=== PATIENT | female | born 1965 | race Caucasian/White ===

== ENCOUNTER 2024-08-07 15:49 | Inpatient (IN) | payer OTHER, SELFPAY ==
[2024-08-07] VITALS (71 sets, daily range): BP systolic 108–227; BP diastolic 62–159; BMI 30.1; BMI 30.4; BMI 30.3
--- NOTE | 2024-08-07 14:21 | ED.CVA ---
History of Present Illness
General
Chief Complaint: CVA/TIA Symptoms
Time Seen by Provider: 08/07/24 14:19
Onset of Stroke Symptoms
Onset of symptoms known: Yes
Date of onset of symptoms: 08/07/24
Time of onset of symptoms: 13:30
Time pt last seen normal is known: Yes
Date last time pt seen normal: 08/07/24
Time last time pt seen normal: 13:30
History of Present Illness
History of Present Illness:
TIME OF INITIAL ENCOUNTER: 2:15 PM
HPI: At around 1:45 PM today, the patient's noted that she not acting like her normal self. She cannot remember anything recently. Upon arrival here she cannot remember how she got here. She could not remember what she was wearing today
or how she got dressed. She has high blood pressure and a history of fatty liver but is otherwise fairly healthy. She does report paresthesias to the upper extremities bilaterally.
EXAM:
GENERAL: Appears anxious
HEENT: Moist oral mucosa
CARDIOVASCULAR: No murmurs, normal heart rate, regular rhythm, No chest wall tenderness
PULMONARY: No respiratory distress, breath sounds are clear and equal
ABDOMEN: Soft with no peritoneal signs, no tenderness
NEUROLOGIC: Excellent strength all extremities, no coordination deficits, does not know the month, knows she is at [facility], cannot state her age
PSYCHIATRIC: The patient currently has limited insight and judgment, poor memory, she appears very anxious
EXTREMITIES: Nontender, no edema, moves all extremities equally
SKIN: Lesions noted to the right upper anterior chest wall consistent with recent dermatologic procedure
NUMBER AND COMPLEXITY OF PROBLEMS ADDRESSED AT THE ENCOUNTER
� Chronic conditions affecting care: High blood pressure
� Acute Exacerbation and/or Progression of Chronic Illness: This is an acute problem
� Differential Diagnosis includes:transient global amnesia, electrolyte normality, CVA, hypertensive urgency/emergency
AMOUNT AND/OR COMPLEXITY OF DATA TO BE REVIEWED AND ANALYZED
� I performed an independent evaluation of and my interpretation is:
EKG: Sinus 94, QTc 497 ms, nonspecific ST abnormality
CT: CT head, CTP, CTA head and neck all negative for acute abnormality
X-rays:
Laboratory Studies: CBC unremarkable
Other:
� Review of other/old records: The patient had colonoscopy in 2021
� Clinical information was obtained by an independent historian: I spoke to at bedside
� Prescriptions/Medications Considered but not given:
� Further testing considered but not performed:
RISK OF COMPLICATIONS AND/OR MORBIDITY OR MORTALITY OF PATIENT MANAGEMENT
� Social determinants of health affecting care: Lives at home
� Discussion with other providers: I spoke to Dr. Buchanan at bedside; Hospitalist for admission
� Escalation of care including admission/observation vs risk of discharge considered: See below
ANY OTHER UPDATES:
The patient was seen immediately upon arrival. CT head, CTP, CTA head neck negative. Hopefully this ends up being transient global amnesia however the patient was seen by neurology who is more concerned about the possible of CVA. Dr. Nicole does
recommend TNK. Her blood pressure initially was as high as 227 systolic. After labetalol 10 mg IV was given she was down to 187 systolic. I have ordered Cardene to try to get her below 180 before TNK. On reassessment at 3:20 PM, her mental
status/memory remains impaired and unchanged compared to arrival.
3:30 PM: Systolics now around 160. Will plan TNK at recommendation of the neurologist.
Past History
Past History
ED Past Medical History: Other (Nephrolithiasis)
ED Past Surgical History: Gynecological
Social History
Tobacco: Non-smoker
Alcohol: None
Phy Exam
Physical Exam
Physical Exam:
See HPI
Course
Orders/Labs/Results
Orders:
Orders
08/07/24 14:19
CT HEAD STROKE ALERT W/o Cont Urgent
Reason For Exam: acute memory loss
08/07/24 14:24
Electrocardiogram (*1) Urgent
Reason for Study: TIA/Stroke
EKG- Treatment ONCE
08/07/24 14:28
CT BRAIN PERF STROKE ALERT Stat
Comment:
Reason For Exam: stroke
CT HEAD/NECK ANG STROKE ALERT Stat
Comment:
Reason For Exam: stroke, amnesia, disorientation, trace right sided
08/07/24 14:56
Alcohol Urgent
Complete Blood Count/With Diff Urgent
Comprehensive Metabolic Panel Urgent
08/07/24 15:03
Labetalol HCl [Trandate] 10 mg IV NOW STA
08/07/24 15:04
Tenecteplase [Tnkase] 20 mg Syringe [Syringe Non-Pump] 0 ml IV NOW
Provider explained risk/benefits to patient &/or caregiver?: Yes
Blood pressure: 227/159
08/07/24 15:15
Nicardipine 40 mg/200 ml [Cardene] 40 mg in 200 ml IV PER PROTOCOL
Initial dose in mg/hr, then titrate:: 2.5
Titrate to keep:: BP < 180/105 mmHg
Titrate by mg/hr:: 2.5 mg/hr
Frequency of titrations (minutes):: 5-15 minutes
Maximum dose in mg/hr:: 15
Begin to taper infusion when:: Remained at goal for 2hrs
Taper by mg/hr:: 2.5 mg/hr
Frequency of taper (minutes) if patient maintains goal:: every 15-30 minutes
Taper to off?: Yes
If infusion off & no longer maintaining goal:: Contact Provider
08/07/24 15:19
Nicardipine 40 mg/200 ml [Cardene] 40 mg in 200 ml .ROUTE .STK-MED
08/07/24 15:33
Admit/Transfer Patient As Directed
Co-Sign Provider:
Level of Care: Inpatient admission
Assign to:: ICU
Physician / Group: Lakeshia
Diagnosis: Amnesia
Reason for Hospitalization: TNK
Expected length of stay greater than two midnights?: Yes
ELOS- Estimated Length of Stay in days: 3
I certify the patient meets the requirements for IP care: Yes
08/07/24 15:34
Code Status As Directed
Resuscitation Status: Full Code
PRN Pain Medication Management As Directed
May give lesser potent ordered pain med per pt: Yes
preference::
Protocol:: Medication orders for pain may be administered in a
manner that supports deferring to patient preference
when the pt is:
- Requesting an ordered lesser potent pain medication.
Least to most potent pain medications are defined
as: acetaminophen < NSAID < tramadol < opioids
(morphine, oxycodone, hydromorphone).
- Requesting a lesser dose of the same medication IF
ORDERED.
- Requesting a less intrusive route of administration
if both routes are prescribed by the provider (PO <
IV).
08/07/24 16:26
Acetaminophen [Tylenol] 650 mg PO Q4HPRN PRN
08/07/24 16:26
Case Management Consult Once
Case Management Consult: Discharge Planning
DIETARY IP CONSULT Routine
Reason for Consult: stroke/TIA
Securities Adviser Consult Routine
Consulting Provider: Tammy Preciado
Was physician already notified: Yes
NEUROLOGY CONSULT Urgent
Consulting Provider: Francisco Buchanan
Was physician already notified: Yes
Ground Instructor Basic Urgent
Activity As Directed
Activity Level: Bathroom Privileges
Out of Bed- Chair
With Assistance
Comment: x 24hr post tenecteplase admin (and no PT/OT). then OOB as tolerated
Head of Bed-Restrictions As Directed
Elevation Level: 30 degress
Frequency: At all times
Comment: head of bed up 30 degrees for 24 hours
Hemetest Stools As Directed
Comment: hemoccult all stools if patient received tenecteplase
NIH Stroke Scale As Directed
Directions: Other
Comment: NIH stroke Scale to be completed prior to thrombolytic administration, then every 1 hour for 2
hours, then every shift and with change in condition and/or mental status.
Neurological Checks As Directed
Frequency: Per unit guidelines
Additional Instructions:: after start of thrombolytic therapy:
q15min x 2 hrs, q30min x 6 hrs, q1h x 16 hrs, q4h x 24 hrs, then every shift and
with any changes.
Notify MD As Directed
Notify physician if: - Any deterioration, change in neurological status, development of severe headache,
nausea and vomiting, or with any signs of bleeding. (see guidelines for suspected
intracerebral hemorrhage).
- If intracranial hemorrhage is suspected or confirmed by imaging, anticipate need for
osmotic diuretic to maintain euvolemia.
Notify MD As Directed
Notify physician if: Glucose less than 70 or greater than 180.
Anticipate corrective insulin orders.
Notify MD As Directed
Notify physician if: unable to obtain MRI of head within 22-32 hours of tenecteplase administration
- contact Neurology for order for CT of head without contrast
Patient Education As Directed
Type: Stroke education packet
Comment: provide to patient and family
Pneumatic Compression Sleeves As Directed
Type: Knee high
Precautions As Directed
Type of Precautions: Bleeding
Comment: post Bleeding Precaution sign at bedside (if patient received tenecteplase)
Swallow Screening CVA/TIA ONLY As Directed
Comment: NPO until swallow screening completed
If patient FAILS swallow screening:: NPO and Speech consult and aspiration precautions
If patient PASSES swallow screening, diet:: Sodium, 2 Gram
Above diet order entered?: Yes- passed screening
Thrombolytic Precautions As Directed
Thrombolytic Precautions:: [place] bleeding precautions. Minimize invasive procedures and venipunctures,
avoid IM injections and over-handling patient, and check all puncture sites for
bleeding. Assess the patient and notify provider for signs and symptoms of
internal or serious bleeding, such as changes in vital signs or evidence of blood
in the urine or stool.
Additional instructions: Hemocult all stools.
Apply direct pressure or pressure dressing to any compressible puncture sites.
No ABG sampling or Gomes insertion after Tenecteplase administration for 24 hours,
unless directed by the Neurologist/Attending.
Vital Signs As Directed
Frequency: q15m
Call for:: BP greater than 180/105 mmHg or less than 100/60 mmHg
Additional Instructions:: after start of thrombolytic therapy:
q15min x 2 hrs, q30min x 6 hrs, q1h x 16 hrs, q4h x 24 hrs, then every shift and
with any changes.
Speech Therapy Eval & Treat Routine
DX Deep Vein Thrombosis Video Routine
08/08/24 04:07
Cardiovascular Evaluation IN AM
Complete Blood Count/No Diff IN AM
Glycohemoglobin (HgbA1c) IN AM
Magnesium IN AM
PTT IN AM
Prothrombin Time IN AM
08/08/24 15:34
Ot Eval And Treat Routine
Pt Eval And Treat Routine
Activity Level: Out of Bed-Early Mobility
Abnormal Lab Results
08/07/24 08/07/24
14:56 15:17
MCH 31.9 H pg
(27.0-31.0)
MPV 11.0 H fL
(7.4-10.4)
Immature Gran % 0.6 H %
(0-0.5)
Chloride 108 H mmol/L
(98-107)
Carbon Dioxide 21 L mmol/L
(22-30)
Glucose 113 H mg/dl
(70-99)
AST 55 H U/L
(14-36)
ALT 76 H U/L
(0-35)
Total Protein 8.3 H g/dl
(6.3-8.2)
Albumin 5.2 H g/dl
(3.5-5.0)
POC Glucose 121 H mg/dl
(70-99)
08/07/24 14:56
08/07/24 14:56
Vital Signs
Initial and Last Documented VS:
Initial Vital Signs
Temp Pulse Resp BP Pulse Ox
36.5 C 125 20 227/159 100
08/07/24 14:09 08/07/24 14:09 08/07/24 14:09 08/07/24 14:09 08/07/24 14:09
Last Documented Vital Signs
Temp Pulse Resp BP Pulse Ox
37.0 C 69 11 116/72 93
08/08/24 03:38 08/08/24 07:00 08/08/24 07:00 08/08/24 07:00 08/08/24 06:45
*Critical Care Note
Total Time (30-74mins, 75-104mins- exclusive of procedures): 45min
comment:
Patient was called as a stroke alert from triage. She was seen by Dr. Buchanan in the ED and is recommending TNK. Close neurologic monitoring. Remains amnestic to recent events.
ED Attending Note
-
Portions of this chart may have been created with voice recognition software.� Occasional wrong word or��sound alike� substitutions may have occurred due to the inherent limitations of voice recognition software.
Discharge Plan
Departure
Patient Disposition: Admit
Date of Disposition: 08/07/24
Time of Disposition: 15:07
Presentation/result/management discussed w/ accepting MD/DO: Hospitalist
Discharge Problem:
Global amnesia
Interventions
Interventions:
*Risk Screen - Suicide Last Done: 08/07/24 14:09
*General Assessment Last Done: 08/07/24 15:50
*Neglect/Abuse Screening Last Done: 08/07/24 14:09
*ED- Fall Risk Assessment Last Done: 08/07/24 15:50
*ED COVID-19 Vaccine History Last Done: 08/07/24 15:50
*Nursing Disposition Last Done: 08/07/24 17:00
ED- Pulmonary Assessment Last Done: 08/07/24 15:25
ED- Neurological Assessment Last Done: 08/07/24 15:33
ED- Cardiac Assessment Last Done: 08/07/24 15:25
ED Swallowing Screen Last Done: 08/07/24 15:41
Discharge Date and Time
Discharge Date/Time: 08/07/24 17:01
--- NOTE | 2024-08-07 14:39 | CON.NEURO ---
Neuro Assessment/Plan
Assessment
Head CT imgs rev'd, normal
CTA head/neck imgs and rept rev'd, no carotid disease, no LVO
CT perfusion color maps reviewed, core 0, penumbra 0
59 year old woman with disorientation, anterograde/retrograde memory loss, and ?right leg weakness. bp 214/119
an unusual presentation for stroke or TGA given the amout of disorientation and retrograde amnesia, though some amount is allowed.
while more likely that this is TGA or functional, I would err on the side of treating a with TNK after bringing down blood pressure, than risk missing a stroke. if it is a stroke, 40% efficacy and ~5% risk of bleeding; if not a stroke and nothing to
bleed then there is no risk
would work up with brain MRI, EEG
Consultation
Order
Date of Consultation: 08/07/24
Requesting Provider: Elan Kitchen
Reason for Consult: stroke alert
Subjective/Objective
Subjective Data
Date of Service: August 07, 2024
From ED notes: At around 1:45 PM today, the patient's noted that she not acting like her normal self. She cannot remember anything recently. Upon arrival here she cannot remember how she got here. She has high blood pressure and a history
of fatty liver but is otherwise fairly healthy. She does report paresthesias to the upper extremities bilaterally
last saw her normal ~1pm after lunch
She cannot remember what she did over the weekend or the previous weekend for . cannot remember any events from this AM.
on initial eval slight RLE drift, resolved after CT scan
In CT asked if her was still here?
Objective Data
Vital Signs
Temp Pulse Resp BP Pulse Ox
36.5 C 125 20 227/159 100
08/07/24 14:09 08/07/24 14:09 08/07/24 14:09 08/07/24 14:08/07/24 14:09
Patient Allergies
Penicillins Allergy (Verified 08/07/24 14:09)
Rash
CVA Assessment
Onset of Stroke Symptoms
Onset of symptoms known: Yes
Date of onset of symptoms: 08/07/24
Time of onset of symptoms: 14:00
Date last time pt seen normal: 08/07/24
Time last time pt seen normal: 13:00
NIH Stroke Score
Level of Consciousness: 0 - Alert
LOC Questions: 2-Neither correct
LOC Commands: 0-Performs both correctly
Best Horizontal Gaze: 0-Normal
Visual Bowman: 0=Normal, no visual loss
Facial Palsy: 0=Normal, symmetrical
Motor - Right Arm: 0=No drift 10 seconds
Motor - Left Arm: 0=No drift 10 seconds
Motor - Right Le-Drift < 5 seconds
Motor - Left Le-No drift 5 seconds
Limb Ataxia: 0-Absent
Sensation: 0-Normal
Best Language: 0-No aphasia
Dysarthria: 0-Normal
Extinction and Inattention: 0-No abnormality
NIH Total Score:: 3
Physical Exam
-
Awake and alert, oriented x0, no aphasia, follows commands and identifies all pictures
VFF, EOMI, face symmetric
full strength b/l UE/LE on MMT
sensation intact to touch/temp/vibration, no sensory neglect
[2024-08-07 15:03] LABS: % Basophils 0.8 % (0-2); % Eosinophils 2.1 % (0-6); % Immature Granulocytes 0.6 % (0-0.5); % Lymphocytes 40.4 % (20.5-51.1); % Monocytes 8.6 % (1.7-9.3); % Neutrophils 47.5 % (42.2-75.2); Absolute Basophils 0.1 10^3/uL (0-0.2); Absolute Eosinophils 0.2 10^3/uL (0-0.7); Absolute Lymphocytes 2.9 10^3/uL (1.2-3.4); Absolute Monocytes 0.6 10^3/uL (0.1-0.6); Absolute Neutrophils 3.4 10^3/uL (1.4-6.5); Hematocrit 43.8 % (37.0-47.0); Hemoglobin 15.8 g/dL (12.0-16.0); Mean Corp Hgb Conc. 36.1 g/dL (33.0-37.0); Mean Corpuscular Hgb 31.9 pg (27.0-31.0); Mean Corpuscular Volume 88.3 fL (81.0-99.0); Nucleated Red Blood Cells % 0 %; Platelet Count 216 10^3/uL (130-400); Red Blood Cell Count 4.96 10^6/uL (4.20-5.40); Red Cell Dist. Width 12.9 % (11.5-14.5); White Blood Cell Count 7.2 10^3/uL (4.8-10.8)
[2024-08-07] MEDS: TRANDATE 10 MG IV (15:07)
[2024-08-07 15:18] LABS: Glucose - Point of Care 121 mg/dl (70-99)
[2024-08-07] MEDS: CARDENE 200 IV ×2 (15:23→23:00)
[2024-08-07 15:24] LABS: ALT (SGPT) 76 U/L (0-35); AST (SGOT) 55 U/L (14-36); Albumin 5.2 g/dl (3.5-5.0); Alcohol None Detected; Alkaline Phosphatase 121 U/L (38-126); Blood Urea Nitrogen 15 mg/dl (7-17); Calcium 9.7 mg/dl (8.4-10.2); Carbon Dioxide 21 mmol/L (22-30); Chloride 108 mmol/L (98-107); Estimated Creatinine Clearance 103 ml/min; Glucose 113 mg/dl (70-99); Potassium 3.8 mmol/L (3.5-5.1); Sodium 139 mmol/L (135-145); Total Bilirubin 0.8 mg/dl (0.2-1.3); Total Protein 8.3 g/dl (6.3-8.2); eGFR > 60.00
[2024-08-07] MEDS: TNKASE 4 MG IV (15:34)
--- NOTE | 2024-08-07 15:40 | HPS.HSE ---
Family Physician
-
Family Physician: NOT KNOW UNKNOWN - PT DOES
Chief Complaint
-
Memory Problem
History of Present Illness
Patient is a 59 y/o female past medical history of hypertension who presents with memory impairment. Additional history is obtained from patient's at the bedside. Patient was in her usual state of health this morning, and seemed to be fine
when the asked her about eating lunch around 1PM. Around 1:45PM the patient called to her that she did feel like her self. noted that she was repeating things. Upon my evaluation patient does not remember how she got to
the emergency department. With further conversation she does not remember things from last week including having some mole removed or going to the [employer] the [employer] movie. She continued to ask repetitive questions during my evaluation.
Medical History
Past Medical History
Past Medical History: Reports Other
Additional Past Medical History:
Essential Hypertension
Past Surgical History: Reports Other
Additional Past Surgical History:
Partial Hysterectomy
Social History
Tobacco: Non-smoker
Alcohol: Occasional
Family History
Family History: Not pertinent
Allergies / Home Medications
Allergies reflects when Allergies were last updated in [facility].
Home Medications with original date entered in [employer]
Allergy/Medication List:
Allergies
Allergy/AdvReac Type Severity Reaction Status Date / Time
Penicillins Allergy Rash Verified 08/07/24 14:09
Home Medications
losartan 25 mg tablet 25 mg PO DAILY 08/07/24
Review of Systems
-
Unable to obtain full review of systems at this time due to: Acuity
History Source: Patient and Family
Respiratory: Denies Trouble Breathing
Cardiac: Denies Chest Pain
Neurological: Reports See HPI
Physical Exam
Vital Signs
Vital Signs
Temp Pulse Resp BP Pulse Ox
97.7 F 99 18 164/108 96
08/07/24 14:09 08/07/24 15:36 08/07/24 15:36 08/07/24 15:36 08/07/24 15:25
Physical Exam
General: No Apparent Distress and Conversant
HEENT: Anicteric and Moist mucous membranes
Respiratory: Clear and Non Labored Respirations
Cardiac: S1/S2 and Regular Rhythm
GI: Soft and Non Tender
Rectal: Deferred by Provider
Musculoskeletal: No Clubbing and No Cyanosis
Skin: Warm and Dry
Neuro: Awake, Alert, Oriented (Patient correctly identifies her at the bedside and states she is at [facility]; After some time she did give the correct year but was unable to tell me the correct month; Initially gave Obama at the
president but was eventually able to identify Zoey as the current president) and No Motor Deficits
Psych: Confused and Anxious
Laboratory Results
-
08/07/24 14:56
08/07/24 14:56
Laboratory Results
Total Bilirubin 0.8 mg/dl (0.2-1.3) 08/07/24 14:56
AST 55 U/L (14-36) H 08/07/24 14:56
ALT 76 U/L (0-35) H 08/07/24 14:56
Alkaline Phosphatase 121 U/L (38-126) 08/07/24 14:56
Data Reviewed
-
CT Scan: Report Reviewed by me
Lab Data: Labs Reviewed by me
Impression/Plan
-
Acute Global Amnesia, differential includes Acute Stroke, TGA and Hypertensive Encephalopathy
-Neurology evaluated patient in the emergency department and recommended TNK
-Admit to ICU post-TNK
-Monitor for bleeding
-Monitor NIH and Neuro-check
-Check Brain MRI tomorrow (24-hours post-TNK)
Hypertensive Emergency
-Patient started on Cardene drip in the emergency department for BP management
-Patient admits to non-compliance with her losartan at home
DVT proph: SCDs
Code Status: Full Code
--- NOTE | 2024-08-07 16:48 | CON.INTV ---
Consultation
Consultation Request
Date/Time Consultation Requested: 08/07/2024
Date/Time Consultation Performed: 08/07/2024
Requesting Provider: Diane Dutton
Performing Provider: Tammy Preciado
Reason for Consultation: Suspected CVA
Medical History
-
Chief Complaint: Memory loss
History of Present Illness:
Patient is a 59-year-old female with known history of hypertension and anxiety with prior history of panic attacks who presents to the hospital with memory impairment. History is primarily obtained from patient at bedside. Reportedly
patient was at her baseline health and then was reportedly at some point was repeating what she was saying and seemed to have memory loss. Patient does not have any recollection of these events including coming to the emergency room or receiving
any treatment. In the emergency room a stroke protocol was initiated, CT and CTA was negative. Patient was evaluated by neurology service and decision was made to proceed with TNK. Post TNK, she is being admitted to the ICU and safety and security manager
consult was requested for further input.
Past Medical History: Reports Other
Additional Past Medical History:
Essential Hypertension
?Fatty liver disease
Past Surgical History: Reports Other
Additional Past Surgical History:
Partial Hysterectomy
Social History
Tobacco: Non-smoker
Alcohol: Occasional
Family History
Family History: Not pertinent
Allergies / Home Medications
Allergies / Home Medications
Allergies
Allergy/AdvReac Type Severity Reaction Status Date / Time
Penicillins Allergy Rash Verified 08/07/24 14:09
Home Medications
�Medication �Instructions �Recorded �Confirmed �Last Taken �Type
losartan 25 mg tablet 25 mg PO DAILY 08/07/24 08/07/24 Unknown History
Review of Systems
-
Hematologic/Lymphatic: Other (All 14 systems reviewed and negative except as stated above in the history of present illness.)
Vitals / Labs / Diagnostic Testing
Vital Signs
Temp Pulse Resp BP Pulse Ox
97.7 F 104 16 140/100 96
08/07/24 14:09 08/07/24 16:36 08/07/24 16:36 08/07/24 16:36 08/07/24 15:25
Lab Data
08/07/24 14:56
08/07/24 14:56
Diagnostic Testing:
Physical Exam
-
HEENT: Normocephalic
Cardiovascular: S1/S2
Respiratory: Clear and Non-Labored Respirations
GI: Soft and Non Distended
Neurology: Awake, Alert, Oriented and Other (Nonfocal neuroexam, amnesia persists)
Skin: Warm and Dry
General: Comfortable
Assessment
-
#1. Amnesia,? Related to underlying CVA versus acute global amnesia versus hypertensive encephalopathy versus conversion reaction
-S/p TNK
-CT and CTA unremarkable
-Neurology service on case
-Follow-up brain MRI
-Neurochecks, monitor closely in the ICU
-Nonfocal neuroexam during my evaluation, amnesia persists
#2. Hypertensive emergency
-Severely elevated blood pressure noted along with amnesia
-Cardene drip currently at 5
#3. History of anxiety, panic attacks
-Previously had been on Prozac, lately has not been on any medication
- Conversion disorder also in differential diagnosis
#4. History of alcohol use
-Patient reports that she considers herself a moderate to may be a heavy drinker
-No previous episodes of alcohol withdrawal symptoms
-Will initiate thiamine, folic acid, as needed Ativan
#5. Mildly abnormal LFTs
- Patient reports prior diagnosis of ?fatty liver
- Monitor for now
DVT prophylaxis with SCDs
Critical Care time 58 mins -- The patient is admitted for acute critical illness for the treatment of vital organ failure and/or prevention of further life-threatening conditions. Total care includes time spent in review of history, physical exam,
medications, hemodynamic/ventilator parameters, laboratory data, imaging and discussion with house staff, pharmacy, respiratory therapy, insurance biller, and nursing.
Data:
EKG 08/2024: Normal sinus rhythm
CTA Head/Neck 08/2024: No acute vascular pathology. No M1 or M2 occlusion.
Moderate reversal of the normal cervical spinal lordosis. This can be seen with muscular spasm.
Multilevel degenerative disc disease.
CT head 08/2024: Unremarkable
--- NOTE | 2024-08-07 17:10 | W.PN.UPDATE ---
Update Note
Progress Note Update
This is an addendum to H&P written by Diane Zuleta in 08/07/2024.� Patient seen examined independently with PA.
59-year-old female past medical history of hypertension presenting with acute memory impairment.� Last seen normal at 1 PM.� At 1-45 she was repeating things, confused and had retrograde amnesia.� Also complained of some numbness in her right hand
and vertigo briefly.
She is supposed to be on losartan but does not comply.
When she arrived she had blood pressure 227/159.� No focal neurological deficits on examination.
Labs show transaminitis.
CT head shows no acute abnormality.� CTA with head and neck showed no acute vascular pathology.
Patient with hypertensive emergency secondary to losartan noncompliance, and concern for acute CVA versus transient global amnesia.
Nicardipine drip started.� TNK was administered.� Neurochecks per protocol, A1c and lipid panel, MRI brain, echocardiogram.� Neurology consulted.
[2024-08-07] MEDS: ZOFRAN 4 MG IV (17:28)
--- NOTE | 2024-08-07 17:53 | PTCARENOTE ---
Received pt via stretcher from ER into ICU rm [id number] @ approx 1630. NIH-1- completed w off going [employer] AIDE TEACHER- see stroke thrombolytic flow sheet. Pt. Ox2; required reorientation to time; short term mem loss; repetitive statements/questions. SILVERMAN w equal
strength; no sensation loss; b/l pupils 3mm/brisk. SR/ST on monitor. SpO2 96% on RA. Afebrile. Cont b/b. Passed swallow screen; diet advanced per orders. Int nausea; v x1; admin IV zofran prn- see MAR. Scattered scabs across neck/upper chest
from recent dermatology intervention per . #18 L AC patent, dressing c/d/i. #20 L hand w Cardene gtt- see flow sheet. Pt. instructed on how to report care concerns and call aundrea newell in reach. Bed alarm active.
[2024-08-07] MEDS: THIAMINE INJECTION 200 MG IV (21:14)
[2024-08-07 21:26] LABS: Amphetamines Negative (Negative); Barbiturates Negative (Negative); Benzodiazepines Negative (Negative); Buprenorphine Negative (Negative); Cocaine Negative (Negative); Marijuana Negative (Negative); Methadone Negative (Negative); Methamphetamines Negative (Negative); Opiates Negative (Negative); Phencyclidine Negative (Negative); Tricyclic Antidepressants Negative (Negative)
--- NOTE | 2024-08-07 22:36 | PTCARENOTE ---
Pt received at 19:00, hand off NIH completed. NIH = 0. Pt forgetul and unable to remember events of today, answers all orientation questions correctly. Pt writing down the events of today to keep at bedside as a reminder for herself. Steady gait.
SR-sinus tach, 90s-low 100s. Remains on cardene for BP control. RA, breath sounds clear, pulse ox mid to high 90s. Denies nausea. +bowel sounds, no BM. Voids clear yellow urine. Scattered scabs/red areas on neck, upper chest/back-per pt, she had
Mohs procedure about a week ago for non-cancerous lesions. Safe environment maintained, call guillaume within reach, pt repositioning self.
[2024-08-08] VITALS (61 sets, daily range): BP systolic 104–159; BP diastolic 55–99; BMI 30.3
[2024-08-08 04:15] LABS: Hematocrit 38.2 % (37.0-47.0); Hemoglobin 13.9 g/dL (12.0-16.0); Mean Corp Hgb Conc. 36.4 g/dL (33.0-37.0); Mean Corpuscular Hgb 32.3 pg (27.0-31.0); Mean Corpuscular Volume 88.8 fL (81.0-99.0); Mean Platelet Volume 10.8 fL (7.4-10.4); Platelet Count 194 10^3/uL (130-400); Red Cell Dist. Width 13.1 % (11.5-14.5); White Blood Cell Count 9.3 10^3/uL (4.8-10.8)
[2024-08-08 04:27] LABS: INR 0.98; PT 13.3 Sec (11.4-14.6)
[2024-08-08 04:28] LABS: APTT 29.3 Sec (23.4-35.0)
[2024-08-08 04:44] LABS: ALT (SGPT) 60 U/L (0-35); AST (SGOT) 37 U/L (14-36); Albumin 4.4 g/dl (3.5-5.0); Alkaline Phosphatase 79 U/L (38-126); Blood Urea Nitrogen 13 mg/dl (7-17); Calcium 9.5 mg/dl (8.4-10.2); Carbon Dioxide 24 mmol/L (22-30); Chloride 107 mmol/L (98-107); Estimated Creatinine Clearance 103 ml/min; GGTP 185 U/L (12-43); Glucose 101 mg/dl (70-99); HDL Cholesterol 59 mg/dl; LDL Cholesterol, Calculated 218 mg/dl; Magnesium 2.3 mg/dl (1.6-2.3); Phosphorus 3.9 mg/dl (2.5-4.5); Potassium 4.2 mmol/L (3.5-5.1); Sodium 138 mmol/L (135-145); Total Bilirubin 0.7 mg/dl (0.2-1.3); Total Cholesterol 305 mg/dl (50-199); Total Protein 6.9 g/dl (6.3-8.2); Triglyceride 144 mg/dl (10-149); Very Low Density Lipoprotein 28 mg/dl (0-30); eGFR > 60.00
--- NOTE | 2024-08-08 06:31 | PTCARENOTE ---
Pt forgetfulness improved. Answers all questions correctly, recalls details from prior conversations. Cardene titrated off.
--- NOTE | 2024-08-08 07:37 | W.PN.HOSP.TC ---
Addendum entered and electronically signed by Miki Arreola MD 08/08/24 20:30:
Attending Addendum-
I saw and evaluated the patient. I reviewed the resident�s note and agree with findings and plan as documented in the resident�s note. Sub: Seen in ICU with and neurology. Patient states she feels anxious. Denies further amnesic episodes or
any other neuro sxs. Denies bleed, PAULINO vision changes w/n/t in any extremities. Full 12 point ROS reviewed and negative except as documented Exam: Vitals reviewed in chart GEN-anxious mild distress heart tachycardic lugs cta B/L no W/R/R abd soft NT
ND pos BS LE no edema Neuro AAOx3 good recal; MS 5/5 sensation intact no cerebellar deficits.
Plan:
# Anterograde Amnesia
- resolved
- s/p TNK 08/07
- transfer to tele
- r/o CVA/TIA/seizure
- seem consistent with TGA
- no signs of bleeding
- Monitor NIH and Neuro-check
- for EEG MRI today
- check echo
- start statin
- delay asa x 24 hours
# Hypertensive Emergency
-was on Cardene gtt now titrated off
-maintain normotension 24 hours post TNK
-Patient admits to non-compliance with her losartan at home
-restart losartan in am
# Hyperlipidemia
- start statin
# Transaminitis
- mild
- likely from fatty liver
- trend
# ETOH Abuse
- used as a compensatory factor for panic and anxiety
- advised and counselled to quit
- cont MSAS
# H/O Panic attacks and Anxiety
- advised to f/u with psych as OP and CBT
DVT proph: SCDs
Code Status: Full Code
Dispo DC home in am
Time spent coordinating care, review of plan of care with resident, personally reviewed records in EMR, med rec, consults, notes, labs, radiology, d/w nursing neuro and POA � 53 mins
Original Note:
Today's Communication/Plan
-
MRI brain
Continue neurochecks
Assessment / Plan
Assessment / Plan
59-year-old female presenting to the ER with confusion/disorientation, amnesia., Paresthesias in the right upper extremity. Was treated with TNK suspicious for stroke after lowering her blood pressure in the ER. Now being managed in the ICU s/p
TNK.
Plan
#Altered mental status/amnesia
#Hypertensive emergency
#Acute encephalopathy
Differentials might be CVA or encephalopathy due to hypertensive emergency or acute global amnesia
NIH stroke score�3 at presentation
Blood pressure in ER�227/159
EKG�NSR
Cardene drip was initiated
CT, CTA, CTP�unremarkable, no evidence of stroke
Urine toxicology negative, labs unremarkable except for mildly elevated transaminases
Neurology consulted
Received TNK after stabilizing blood pressure
Plan for MRI today�follow-up with results
Appreciate neuro input
Neurochecks
Off off Cardene drip
Maintain permissive hypertension for 24-48 hours.
#Mildly elevated transaminases
#Chronic alcohol use
Patient reports history of fatty liver
Patient reports that she is a moderate to heavy drinker, 5 days/week.
Continue thiamine, folate
Continue to monitor
#Hyperlipidemia
Patient reported history of hyperlipidemia, medication noncompliance.
Elevated total cholesterol�305
Will initiate high intensity statin/rosuvastatin 20 mg
#History of anxiety/panic attacks
Conversion disorder in the differential
History of Prozac use, not currently on any medication
#DVT prophylaxis�SCDs
Full code
Anticipated Discharge: Within 24 hours
Subjective/Interval History
-
Date of Service: August 08, 2024
No anterograde amnesia. Patient reports that she was not able to recollect the events only during the episode.
Objective Data
-
Labs:
Laboratory Results
08/08/24
04:07
WBC 9.3
Hgb 13.9
Hct 38.2
Plt Count 194
PT 13.3
INR 0.98
APTT 29.3
Sodium 138
Potassium 4.2
Chloride 107
Carbon Dioxide 24
BUN 13
Creatinine 0.6
Glucose 101 H
Calcium 9.5
Total Bilirubin 0.7
AST 37 H
ALT 60 H
Alkaline Phosphatase 79
Vital Signs:
Vital Signs
Temp Pulse Resp BP Pulse Ox
98.6 F 69 11 116/72 93
08/08/24 03:38 08/08/24 07:00 08/08/24 07:00 08/08/24 07:00 08/08/24 06:45
I&O
08/07/24 08/08/24 08/09/24
06:59 06:59 06:59
Intake Total 1230.0 / 1230.0
Output Total 1100 / 1100
Balance 130.0 / 130.0
Physical Exam
-
General: Well Developed and Well Nourished
HEENT: Normocephalic and Atraumatic
Respiratory: Clear to Auscultation
Cardiac: Regular Rhythm and S1/S2
GI: Soft, Nontender, Nondistended and Normal Bowel Sounds
Skin: Warm and Dry
Neuro: Awake, Alert, Oriented, AO x 3, Nonfocal/Grossly Intact, Central Nerve's Intact, No Sensory Deficits and DTR's Intact & Symmetrica
Psych: Calm
[2024-08-08] MEDS: THIAMINE INJECTION 200 MG IV ×2 (08:26→20:29)
[2024-08-08] MEDS: FOLVITE 1 MG PO (08:26)
[2024-08-08 09:27] LABS: Glycohemoglobin (HgbA1c) 5.3 % (4.0-5.6)
--- NOTE | 2024-08-08 10:07 | PTOTSP ---
Speech Therapy Evaluation:
Pt with precipitating risk factors of dysphagia including Acute Global Amnesia with a differential that includes Acute Stroke, TGA and Hypertensive Encephalopathy. Despite this, pt presents with oropharyngeal swallow that appears WFL at bedside. No
overt s/sx of aspiration. No hx of PNA, AUTOCAD OPERATOR services, or dysphagia. Pt passed 3oz swallow screen, WBC WNL, and all imaging negative thus far.
Recommend:
1. Continue regular solids and thin liquids
2. Medications as tolerated
3. General aspiration precautions
4. No further services indicated for swallow. AUTOCAD OPERATOR to consider formal cognitive assessment pending results of MRI.
--- NOTE | 2024-08-08 10:42 | W.PN.INTV ---
Today's Communication / Plan
Recommendations
- Await MRI
- Anticipate transfer out of ICU later today
- Furniture Painter service will sign off once patient is transferred out of ICU
Assessment
-
Patient is a 59-year-old female with known history of hypertension and anxiety with prior history of panic attacks who presents to the hospital with memory impairment. History is primarily obtained from patient at bedside. Reportedly
patient was at her baseline health and then was reportedly at some point was repeating what she was saying and seemed to have memory loss. Patient does not have any recollection of these events including coming to the emergency room or receiving
any treatment. In the emergency room a stroke protocol was initiated, CT and CTA was negative. Patient was evaluated by neurology service and decision was made to proceed with TNK. Post TNK, she is being admitted to the ICU and pipe puller
consult was requested for further input.
#1. Amnesia,? Related to underlying CVA versus acute global amnesia versus hypertensive encephalopathy versus conversion reaction
-S/p TNK 08/07
-CT and CTA unremarkable
-Neurology service on case
-Follow-up brain MRI today
-Neurochecks,
- Neuroexam unremarkable this a.m.
#2. Hypertensive emergency
-Severely elevated blood pressure noted on admission, required Cardene infusion
- Off Cardene drip now
- Permissive hypertension for 24 to 48 hours
#3. History of anxiety, panic attacks
-Previously had been on Prozac, lately has not been on any medication
-Conversion disorder also in differential diagnosis
#4. History of alcohol use
-Patient reports that she considers herself a moderate to may be a heavy drinker
-No previous episodes of alcohol withdrawal symptoms
- Continue thiamine, folic acid and as needed Ativan
#5. Mildly abnormal LFTs
- Patient reports prior diagnosis of ?fatty liver
- Monitor for now
DVT prophylaxis with SCDs
Critical Care time 42 mins -- The patient is admitted for acute critical illness for the treatment of vital organ failure and/or prevention of further life-threatening conditions. Total care includes time spent in review of history, physical exam,
medications, hemodynamic/ventilator parameters, laboratory data, imaging and discussion with house staff, pharmacy, respiratory therapy, instructional design specialist, and nursing.
Data:
EKG 08/2024: Normal sinus rhythm
CTA Head/Neck 08/2024: No acute vascular pathology. No M1 or M2 occlusion.
Moderate reversal of the normal cervical spinal lordosis. This can be seen with muscular spasm.
Multilevel degenerative disc disease.
CT head 08/2024: Unremarkable
Subjective Dataa
Subjective Data
Date of Service:
Date of Service: August 08, 2024
Subjective:
Patient comfortably sitting in bed in no acute distress.
Review of Systems
Genitourinary: Other (All 14 systems reviewed and negative except as stated above in the history of present illness.)
Objective Data
Data Reviewed
Vital Signs / I&O / Oxygen:
Vital Signs
Temp Pulse Resp BP Pulse Ox
98.4 F 92 16 159/98 95
08/08/24 08:00 08/08/24 08:45 08/08/24 08:45 08/08/24 08:36 08/08/24 08:15
Intake and Output
08/07/24 08/08/24 08/09/24
06:59 06:59 06:59
Intake Total 1230.0 / 1230.0 400 / 400
Output Total 1100 / 1100 300 / 300
Balance 130.0 / 130.0 100 / 100
SaO2 95
Physical Exam
General: Comfortable
HEENT: Normocephalic
Cardiovascular: S1-S2
Respiratory: Clear
GI: Soft and Non Distended
Neurology: Awake, Alert and Oriented
Skin: Warm
Labs/Micro/Reports
Lab Data
08/08/24 04:07
08/08/24 04:07
Laboratory Results
08/08/24
04:07
PT 13.3
INR 0.98
APTT 29.3
--- NOTE | 2024-08-08 11:46 | W.PN.NEURO.1 ---
Today's Communication / Plan
-
transient global amnesia
would work up with brain MRI w/o contrast, routine EEG
Neuro Assessment/Plan
Assessment
Head CT imgs rev'd, normal
CTA head/neck imgs and rept rev'd, no carotid disease, no LVO
CT perfusion color maps reviewed, core 0, penumbra 0
59 year old woman with disorientation, anterograde/retrograde memory loss, and ?right leg weakness. bp 214/119
In retrospect this is clinically TGA though unusal given the amount of disorientation and retrograde amnesia
etiology is speculated as sometimes TIA (vascular) or partial seizure (electrical) or other;
in her case with the initial presentation of accelerated HTN 227/159 and LDL >200 I suspect TIA/vascular to be more likely, needs to work on lowering risk factors
would work up with brain MRI w/o contrast, routine EEG
Subjective/Objective
Subjective Data
Date of Service: August 08, 2024
made a full recovery, except no memory of yesterday afternoon's events.
Objective Data
Vital Signs
Temp Pulse Resp BP Pulse Ox
36.9 C 92 16 159/98 95
08/08/24 08:00 08/08/24 08:45 08/08/24 08:45 08/08/24 08:36 08/08/24 08:15
Lab Results
08/08/24 04:07
08/08/24 04:07
PT 13.3 Sec (11.4-14.6) 08/08/24 04:07
INR 0.98 08/08/24 04:07
APTT 29.3 Sec (23.4-35.0) 08/08/24 04:07
Sodium 138 mmol/L (135-145) 08/08/24 04:07
Potassium 4.2 mmol/L (3.5-5.1) 08/08/24 04:07
BUN 13 mg/dl (7-17) 08/08/24 04:07
Glucose 101 mg/dl (70-99) H 08/08/24 04:07
Calcium 9.5 mg/dl (8.4-10.2) 08/08/24 04:07
Phosphorus 3.9 mg/dl (2.5-4.5) 08/08/24 04:07
LDL Cholesterol, Calc 218 mg/dl 08/08/24 04:07
Ur Buprenorphine Negative (Negative) 08/07/24 20:52
Patient Allergies
Penicillins Allergy (Verified 08/07/24 14:09)
Rash
Physical Exam
-
AAOx3, speech clear, language intact
face symmetric
full strength
--- NOTE | 2024-08-08 12:00 | PTCARENOTE ---
Neurochecks WNL. All other assessments unchanged.
--- NOTE | 2024-08-08 12:19 | CM ---
Initial assessment completed with patient with in room. Patient and live in a ranch style home with a loft and basement with no steps to enter. [employer] patient was independent in ADL's and ambulation with no DME in use or in the home.
Sse does drive. No in-home services.
No HC-POA. HC-POA documents supplied per request. No service. Support system is , brother and parents. PCP is Dr. Shelley Gann in . Pharmacy is [facility] on [facility] in . Discharge Plan of Care: Anticipate home with no needs.
--- NOTE | 2024-08-08 16:00 | PTCARENOTE ---
Neurochecks WNL. All other assessments unchanged.
--- NOTE | 2024-08-08 20:00 | PTCARENOTE ---
Received report from shakir RN, assumed care of patient at 1900. Nursing assessment completed and as documented. Downgraded to telemetry, tele pack provided. NIH score of 0. Patient showered. Medications given as per order, VSS, care ongoing.
--- NOTE | 2024-08-08 22:09 | EEG.RPT ---
Electroencephalogram Report
Recording
Date of EE08/08/24
Length of EEG recordin mins
Done with Video Recording: Yes
Patient Status: Inpatient
Recording Conditions: Awake and Asleep
Hyperventilation Performed: Yes
Photic Stimulation Performed: Yes
Report
Clinical Background:�59 year old woman with transient global amnesia
Introduction: A routine bedside EEG was done using [employer] 10-20 electrode placement protocol.
Background: In the most alert state, the PDR is 10-11 Hz in frequency with normal amplitude. There is spontaneous variability and reactivity.�
Sleep: Stage I sleep is seen.�
Focal/epileptiform: There were no focal or epileptiform discharges. No clinical or electrographic seizures occurred during this recording.
Hyperventilation: resulted in symmetric slowing.
Photic stimulation: resulted in normal driving response. There was no photo myogenic or photoparoxysmal response.�
Impression: Normal EEG
[2024-08-09] VITALS (7 sets, daily range): BP systolic 96–147; BP diastolic 73–99; BMI 28.9
[2024-08-09 05:30] LABS: % Basophils 0.9 % (0-2); % Eosinophils 4.1 % (0-6); % Immature Granulocytes 0.5 % (0-0.5); % Lymphocytes 32.4 % (20.5-51.1); % Monocytes 9.4 % (1.7-9.3); % Neutrophils 52.7 % (42.2-75.2); Absolute Basophils 0.1 10^3/uL (0-0.2); Absolute Eosinophils 0.3 10^3/uL (0-0.7); Absolute Lymphocytes 2.2 10^3/uL (1.2-3.4); Absolute Monocytes 0.6 10^3/uL (0.1-0.6); Absolute Neutrophils 3.5 10^3/uL (1.4-6.5); Hematocrit 39.3 % (37.0-47.0); Hemoglobin 13.9 g/dL (12.0-16.0); Mean Corp Hgb Conc. 35.4 g/dL (33.0-37.0); Mean Corpuscular Hgb 31.7 pg (27.0-31.0); Mean Corpuscular Volume 89.5 fL (81.0-99.0); Mean Platelet Volume 10.8 fL (7.4-10.4); Nucleated Red Blood Cells % 0 %; Platelet Count 179 10^3/uL (130-400); Red Blood Cell Count 4.39 10^6/uL (4.20-5.40); Red Cell Dist. Width 13.1 % (11.5-14.5); White Blood Cell Count 6.6 10^3/uL (4.8-10.8)
[2024-08-09 05:55] LABS: ALT (SGPT) 77 U/L (0-35); AST (SGOT) 62 U/L (14-36); Albumin 4.3 g/dl (3.5-5.0); Alkaline Phosphatase 78 U/L (38-126); Blood Urea Nitrogen 21 mg/dl (7-17); Calcium 9.6 mg/dl (8.4-10.2); Carbon Dioxide 24 mmol/L (22-30); Chloride 108 mmol/L (98-107); Estimated Creatinine Clearance 101 ml/min; Glucose 105 mg/dl (70-99); Potassium 4.5 mmol/L (3.5-5.1); Sodium 138 mmol/L (135-145); Total Bilirubin 0.6 mg/dl (0.2-1.3); Total Protein 6.8 g/dl (6.3-8.2); eGFR > 60.00
--- NOTE | 2024-08-09 07:50 | W.PN.HOSP.TC ---
Addendum entered and electronically signed by Miki Arreola MD 08/09/24 21:05:
Attending Addendum-
I saw and evaluated the patient. I reviewed the resident�s note and agree with findings and plan as documented in the resident�s note. Sub: Feels great wants to go home. seen with korey. Denies further amnesic episodes or any other neuro sxs. Full
12 point ROS reviewed and negative except as documented Exam: Vitals reviewed in chart GEN-anxious mild distress heart tachycardic lugs cta B/L no W/R/R abd soft NT ND pos BS LE no edema Neuro AAOx3 good recal; MS 5 sensation intact no cerebellar
deficits.
Plan:
# Anterograde Amnesia
- resolved
- s/p TNK 08/07
- transfer to tele
- r/o CVA/TIA/seizure
- seem consistent with TGA
- no signs of bleeding
- Monitor NIH and Neuro-check
- EEG MRI-- WNL
- echo - WNL
- start statin
- start asa
# Hypertensive Emergency
-was on Cardene gtt now titrated off
-maintained normotension 24 hours post TNK
-Patient admits to non-compliance with her losartan at home
-restart losartan
# Hyperlipidemia
- start statin
# Transaminitis
- mild
- likely from fatty liver
- trend
# ETOH Abuse
- used as a compensatory factor for panic and anxiety
- advised and counselled to quit
# H/O Panic attacks and Anxiety
- advised to f/u with psych as OP and CBT
DVT proph: SCDs
Code Status: Full Code
Dispo DC home
Time spent coordinating care, DC planning, review of DC plan of care with resident, transition of care, review of records, med rec/scripts sent electronically, consults, notes, d/w consultants, nursing, family/POA, and CM� 32 mins
Original Note:
Today's Communication/Plan
-
Discharge today
Continue losartan
Start aspirin
Assessment / Plan
Assessment / Plan
59-year-old female presenting to the ER with confusion/disorientation, amnesia., Paresthesias in the right upper extremity. Was treated with TNK suspicious for stroke after lowering her blood pressure in the ER. Now being managed in the ICU s/p
TNK.
Plan
#Altered mental status/amnesia
#Hypertensive emergency
#Acute encephalopathy
Differentials might be CVA or encephalopathy due to hypertensive emergency or acute global amnesia
NIH stroke score�3 at presentation
Blood pressure in ER�227/159
EKG�NSR
Cardene drip was initiated
CT, CTA, CTP�unremarkable, no evidence of stroke
Echo�no evidence of embolus
Urine toxicology negative, labs unremarkable except for mildly elevated transaminases
Neurology consulted
Received TNK after stabilizing blood pressure
MRI�1. No MRI evidence for acute infarct or transient global amnesia.
2. Mild white matter leukoaraiosis in the frontal and parietal lobes.
3. Mild bilateral frontal and parietal lobe volume loss.
4. Mild multilevel cervical spinal cord compression secondary to multilevel cervical discogenic degenerative disease and disc-osteophyte complexes.
Appreciate neuro input
Neurochecks
Off off Cardene drip
Restarted losartan
Will start aspirin 81 mg
#Mildly elevated transaminases
#Chronic alcohol use
Patient reports history of fatty liver
Patient reports that she is a moderate to heavy drinker, 5 days/week.
Continue thiamine, folate
Continue to monitor
#Hyperlipidemia
Patient reported history of hyperlipidemia, medication noncompliance.
Elevated total cholesterol�305
rosuvastatin 20 mg
#History of anxiety/panic attacks
Conversion disorder in the differential
History of Prozac use, not currently on any medication
#DVT prophylaxis�Lovenox
Full code
Anticipated Discharge: Today
Subjective/Interval History
-
Date of Service: August 09, 2024
Patient does not have any issues overnight.
Objective Data
-
Labs:
Laboratory Results
08/09/24
05:10
WBC 6.6
Hgb 13.9
Hct 39.3
Plt Count 179
Sodium 138
Potassium 4.5
Chloride 108 H
Carbon Dioxide 24
BUN 21 H
Creatinine 0.6
Glucose 105 H
Calcium 9.6
Total Bilirubin 0.6
AST 62 H
ALT 77 H
Alkaline Phosphatase 78
Vital Signs:
Vital Signs
Temp Pulse Resp BP Pulse Ox
98.1 F 82 18 135/84 98
08/09/24 03:43 08/09/24 03:43 08/09/24 03:43 08/09/24 03:43 08/09/24 03:43
I&O
08/08/24 08/09/24 08/10/24
06:59 06:59 06:59
Intake Total 1230.0 / 1230.0 1360 / 1360
Output Total 1100 / 1100 1200 / 1200
Balance 130.0 / 130.0 160 / 160
Physical Exam
-
General: Well Developed, Well Nourished and No Apparent Distress
HEENT: Normocephalic and Atraumatic
Respiratory: Clear to Auscultation
Cardiac: Regular Rhythm and S1/S2
GI: Soft, Nontender, Nondistended and Normal Bowel Sounds
Skin: Warm and Dry
Neuro: Awake, Alert, Oriented, AO x 3, No Motor Deficits, Nonfocal/Grossly Intact and No Sensory Deficits
Psych: Calm
[2024-08-09] MEDS: FOLVITE 1 MG PO (08:08)
[2024-08-09] MEDS: THIAMINE INJECTION 200 MG IV (08:08)
[2024-08-09] MEDS: COZAAR 25 MG PO (08:09)
--- NOTE | 2024-08-09 14:11 | CM ---
Patient has been medically cleared for discharge to home with no additional skilled services. will transport home.
== END 2024-08-09 15:43 | disposition home or self-care (01) | DRG 71 ==
LOC: ICU 15:49
PROVIDERS: Physician Assistant Medical; Student in an Organized Health Care Education/Training Program; ADMITTING PHYSICIAN Hospitalist; ATTENDING PHYSICIAN Family Medicine; CONSULT PHYSICIAN Internal Medicine; CONSULT PHYSICIAN Psychiatry & Neurology Clinical Neurophysiology; EMERGENCY PHYSICIAN Emergency Medicine
PROC: 3E03317 Introduction of Other Thrombolytic into Peripheral Vein, Percutaneous Approach (ICD-10-PCS; 2024-08-07)
DX: G93.49 Other encephalopathy (principal); I16.1 Hypertensive emergency; E78.5 Hyperlipidemia, unspecified; F10.10 Alcohol abuse, uncomplicated; Z91.199 Patient's noncompliance with other medical treatment and regimen due to unspecified reason
CPT/HCPCS: 0042T; 70450; 70496; 70498; 70551; 71045; 80053; 80061; 80306; 82077; 82962; 82977; 83036; 83735; 84100; 85025; 85027; 85610; 85730; 92610; 93005; 93306; 95816; 96374; 97166; 99291; J3101; Q9967